=== PATIENT | male | born 1955 | race Caucasian/White ===

== ENCOUNTER 2021-06-04 18:17 | Emergency (ER) | payer MEDICARE, SELFPAY ==
[2021-06-04 18:23] VITALS: BP 177/123; PULSE 106; RESP 18; TEMP 36.6; O2SAT 96
[2021-06-04 19:11] LABS: Basophils Absolute Auto 0.1 K/mm3 (0.0-0.1); Basophils Percent Auto 0.8 % (0.2-1.2); Eosinophils Absolute Auto 0.2 K/mm3 (0-0.3); Eosinophils Percent Auto 1.6 % (0-4.4); Hematocrit 46.9 % (42.0-52.0); Hemoglobin 16.1 g/dL (14.0-18.0); Immature Granulocyte Absolute 0.05 K/mm3 (0.00-0.031); Immature Granulocyte Percent A 0.5 % (0-0.5); Lymphocytes Absolute Auto 1.74 K/mm3 (0.9-3.2); Lymphocytes Percent Auto 15.7 % (18.3-44.2); Mean Corpuscular HGB Conc 34.3 g/dl (32-36); Mean Corpuscular Hemoglobin 30.6 pg (26-34); Mean Corpuscular Volume 89.2 fl (80-100); Mean Platelet Volume 9.8 fl (7.4-10.4); Monocytes Absolute Auto 0.8 K/mm3 (0.1-0.6); Monocytes Percent Auto 7.6 % (2.6-8.5); Neutrophils Absolute Auto 8.2 K/mm3 (1.3-6.7); Neutrophils Percent Auto 73.8 % (45.5-73.1); Platelet Count Result 346 k/mm3 (150-375); Red Blood Count 5.26 M/mm3 (4.6-6.20); Red Cell Distribution Width 12.5 % (11.5-14.5); White Blood Count 11.1 K/mm3 (4.5-10.0)
[2021-06-04 19:20] LABS: Anion Gap 9 mmol/L (8-16); Blood Urea Nitrogen 16 mg/dL (9-20); Calcium 10.4 mg/dL (8.4-10.2); Carbon Dioxide 23 mmol/L (22-30); Chloride 106 mmol/L (98-107); Estimated CRCL calculation 62 ml/min; Estimated Glomerular Filt Rate > 60; Glucose 110 mg/dL (65-110); Potassium 4.1 mmol/L (3.4-5.0); Sodium 138 mmol/L (137-145)
--- NOTE | 2021-06-04 19:20 | ED.MALEGU ---
HPI - Male Genitourinary General Chief complaint: Urogenital-Male Stated complaint: unable to urinate Time Seen by Provider: 06/04/21 19:09 Source: patient Mode of arrival: ambulatory Limitations: no limitations History of Present Illness HPI Narrative: Patient is a 66-year-old male complaining of unable to urinate since this morning. Patient states that he has a history of urinary retention due to blood clots since he had prostate surgery and radiation treatment due to prostate cancer years ago, states that it would intermittently occur once or twice a year. Patient denies being on any oral anticoagulants or any antiplatelet drugs. Patient denies any pain. Patient sees Dr. Borja for his urologic issues. Related Data Allergies Allergy/AdvReac Type Severity Reaction Status Date / Time Quinolones Allergy Mild RASH Unverified 07/27/08 14:11 Review of Systems Review of Systems: All systems reviewed & are unremarkable except as noted in HPI and below Constitutional: Constitutional: Denies body ache(s), Denies chills, Denies excessive sweating, Denies fatigue, Denies fever(s), Denies headache(s), Denies lethargy, Denies malaise, Denies weakness and Denies weight loss Eyes: Eyes: Denies blurry vision, Denies change in vision and Denies loss of vision ENT: Denies dizziness, Denies ear discharge, Denies headache(s), Denies lip swelling, Denies epistaxis, Denies nasal congestion, Denies neck pain, Denies throat swelling and Denies tongue swelling Cardiovascular: Cardiovascular: Denies chest pain, Denies chest pain at rest, Denies chest pain with activity, Denies diaphoresis, Denies rapid heart rate, Denies edema, Denies irregular heart rhythm, Denies lightheadedness, Denies palpitations, Denies dyspnea and Denies dyspnea on exertion Respiratory: Respiratory: Denies chest congestion, Denies cough, Denies hemoptysis, Denies dyspnea and Denies dyspnea on exertion Gastrointestinal: Gastrointestinal: Denies abdominal pain, Denies melena, Denies hematochezia, Denies diarrhea, Denies nausea, Denies vomiting and Denies hematemesis Musculoskeletal: Musculoskeletal: Denies abnormal gait, Denies deformity, Denies joint swelling, Denies limited range of motion, Denies neck pain and Denies numbness Neurologic: Denies Abnormal speech present, Denies abnormal gait, Denies confusion, Denies dizziness, Denies headache(s), Denies focal weakness, Denies loss of vision, Denies numbness, Denies Other visual disturbances, Denies Sensory deficit (Neuro) and Denies weakness Psychiatric: Psychiatric: Denies confusion, Denies depression, Denies auditory hallucinations, Denies homicidal ideation and Denies suicidal ideation Endocrine: Endocrine: Denies cold intolerance, Denies excessive sweating, Denies fatigue, Denies heat intolerance and Denies palpitations Hematologic/Lymphatic: Hematologic/Lymphatic: Denies easy bleeding and Denies easy bruising Allergic/Immunologic: Allergic/Immunologic: Denies lip swelling, Denies throat swelling and Denies tongue swelling PMFSH Comments Past medical history: Prostate CA Family history: Hypertension Social history: Non-smoker no EtOH or drug use Exam Const: General: cooperative, healthy appearing, comfortable, no acute distress, well developed, alert and awake; No confusion Orientation/consciousness: oriented to person, oriented to place, oriented to time, patient oriented x3 and No confusion Limitations: no limitations HENMT: Head: normal to inspection, normocephalic and atraumatic Ears: hearing grossly normal bilaterally, TM normal on the right and TM normal on the left General nose exam: Normal external nose present, Normal nares present and No nasal discharge present Face and sinus: normal facial exam Mouth: Yes Normal oral and palatal mucosa present, Yes lip normal, Yes tongue normal and Yes oropharynx normal Throat: posterior oropharynx normal, tonsils normal and uvula midline Eyes: General: appearance normal, bot
[2021-06-04 19:31] LABS: Add Urine Microscopic? YES; Appearance Urine Cloudy (Clear); Bilirubin Urine Negative (Negative); Blood Urine 3+ (Negative); Color Urine Red (Yellow); Glucose Urine UA Negative (Negative); Ketones Urine Negative (Negative); Leukocyte Esterase Ur Negative LEU/UL (Negative); Mucus Urine Rare /lpf; Nitrate Urine Negative (Negative); Protein Urine 2+ mg/dL (Negative); RBC Urine >75 /hpf (0-2); Urobilinogen Urine Negative mg/dL (<2.0); WBC Urine 0-3 /hpf
[2021-06-04 20:24] VITALS: BP 138/104; PULSE 83; RESP 18; O2SAT 95
--- NOTE | 2021-06-04 20:30 | PC.NURSE ---
Catheter bag changed out to a leg bag. Patient instructed on use. Verbalized understanding.
== END 2021-06-04 20:30 | disposition home or self-care (01) ==
PROVIDERS: Emergency Medicine; Emergency Provider Emergency Medicine
DX: R33.9 Retention of urine, unspecified (principal); R31.0 Gross hematuria; Z85.46 Personal history of malignant neoplasm of prostate; Z92.3 Personal history of irradiation
CPT/HCPCS: 36415; 51703; 80048; 81001; 85025; 99283

== ENCOUNTER 2022-01-03 00:58 | Day surgery (SDC) | payer MEDICARE, SELFPAY ==
[2022-01-02 12:44] VITALS: BMI 29.7
--- NOTE | 2022-01-02 12:52 | PC.NURSE ---
Report to the Outpatient Waiting Room, entrance under the green pavilion located off [facility], at time 0815 on date 01/03/22. OR Time: 1015. Time changes happen often and if your time is changed the preop area will call you the afternoon before. - You and your visitor will be asked to self-screen and do not enter if you have any COVID symptoms. - Only one visitor and NO children visitors are allowed at this time. - The patient visitor is requested to leave or wait in car when not with patient due to restrictions. - A mask is required within the hospital. Patients may have clear liquids (water, carbonated beverages, clear teas, apple juice) until 3 hours prior to surgery with a maximum of 20 ounces. - No food from midnight until time of surgery Take the following medications with a SIP of water the morning of surgery: N/A Medications to discontinue per physician: N/A Date to take last dose: N/A Please no make-up, nail spanish, hairspray, perfume, deodorant, or body powder the day of surgery. No jewelry (including any body piercings) or valuables the day of surgery, leave them at home. Please take a shower or bath the night before, or the morning of, surgery with an antibacterial soap. Wear comfortable, loose fitting clothing. - Jewelry must be removed prior to entering the operating room. Rings and piercings that are not removed may be cut off. - The hospital will not accept responsibility for valuables. - Please leave all valuables, including medications, at home the day of surgery. If you are going home after surgery, a licensed driver education instructor must drive you home. - NO public transportation without another adult. - We recommend that an adult stay with you for 24 hours following discharge. - We also recommend that you do not drive, make important decision, drink alcoholic beverages, or take any drugs that were not prescribed by your health care provider for at least 24 hours after your discharge time. Follow any additional instructions given to you from your surgeon. If you or anyone in your household have experienced Covid symptoms in the past week, please notify your surgeon or the nurse liaison at the phone number below for possible testing. Telephone instructions given to PT - ARON BAÑUELOS and asked if any additional questions and then verbalized understanding. Patient advised to call surgeon office or pre surgery nurse liaison [phone] if any additional questions.
--- NOTE | ~2022-01-03 | XR_ITS ---
XR OR cystogram 01/03/2022 11:08 Indication: Intraoperative cystogram Procedure: 2 fluoroscopic images of the abdomen and pelvis. 42 seconds of fluoroscopy. Comparison: No prior studies for comparison. Findings: There are surgical changes in the pelvis bilaterally. Contrast is present in the bladder diego men which is smoothly marginated. No evidence for extravasation or reflux on this single image. Impression: 1: Unremarkable cystogram. Reviewed, dictated and finalized at location A. Impression: 1: Unremarkable cystogram.
--- NOTE | 2022-01-03 06:24 | ECG_ITS ---
Measurements Intervals [place] Rate: 66 P: 25 SC: 148 QRS: 1 QRSD: 88 T: -3 QT: 375 QTc: 394 Interpretive Statements SINUS RHYTHM EARLY PRECORDIAL R/S TRANSITION VOLTAGE CRITERIA FOR LVH BORDERLINE ST-T WAVE ABNORMALITY- INFERIOR LEADS BORDERLINE ECG NO PREVIOUS ECG AVAILABLE FOR COMPARISON Electronically Signed On 01-03-2022 10:20:00 CDT by Vic Moya D.O.
--- NOTE | 2022-01-03 06:44 | WPDHPUPDATE1 ---
History and Physical Update Update Date/Time: 01/03/22 06:44 History and Physical has been reviewed, including an updated exam of the patient. There are NO changes in the patient's condition. Risks, benefits, and alternatives have been discussed and questions answered. Patient agrees to proceed with procedure.
--- NOTE | 2022-01-03 09:10 | WPDANESEPPF ---
Anes - Initial Pre Proc Eval Procedure: Operation Date: 01/03/22 10:15 Proposed Procedures p Cystoscopy, Dilation Bladder Neck Contracture with Cystogram, Formalin Instillation - Kenny Robles MD Date/Time: 01/03/22 09:10 Surgeon: Kenny Robles MD Pre Op Diagnosis: Bladder Neck Contracture, Gross Hematuria Patient Data Age: 66 Gender: M Height: 1.7 m Weight: 86.18 kg Allergies Allergy/AdvReac Type Severity Reaction Status Date / Time Quinolones Allergy Mild RASH Unverified 01/02/22 12:43 Home Medications Medication Instructions Recorded Confirmed Type amlodipine 5 mg tablet 5 mg PO HS 01/02/22 01/02/22 History hydrochlorothiazide 12.5 mg capsule 12.5 mg PO HS 01/02/22 01/02/22 History losartan 100 mg tablet 100 mg PO HS 01/02/22 01/02/22 History Patient hx anesthesia problems: none Family hx anesthesia problems: none Results Review: All pre-operative results and documents have been reviewed as part of the pre-operative evaluation. [facility] Past Medical History Medical History (Updated 01/03/22 @ 09:11 by Luis Godfrey MD) HTN (hypertension) Overweight Prostate cancer Surgical History Surgical History (Updated 01/03/22 @ 09:14 by Luis Godfrey MD) H/O prostatectomy open- Social History Social History Smoking status: Never smoker Alcohol intake: never Substance use: never Substance use type: does not use Living arrangements: with family Spiritual care concerns: No Anes - Eval Final PreProcedure Day of Procedure 01/03/22 09:10 Patient weight: overweight Heart: regular rate and rhythm Lungs: clear to auscultation Airway: Mallampati scale class II Neurological: alert and oriented Last oral intake: >/= 8 hours ASA classification: III Emergent: no Anesthetic plan: proceed Anesthesia type and monitoring: general LMA and standard monitoring Results Review: All pre-operative results and documents have been reviewed as part of the pre-operative evaluation. Informed Consent: The patient's anesthetic plan and its attendant risks and benefits were discussed with the patient/family/POA. Questions were solicited and answers provided to the satisfaction of the patient/family/POA.
[2022-01-03] MEDS: LACTATED RINGERS 1,000 ML 30 ML IV CONT ×2 (09:15→12:45)
[2022-01-03 09:27] VITALS: BP 137/85; PULSE 73; RESP 14; TEMP 36.4; O2SAT 99
[2022-01-03 09:38] LABS: Anion Gap 12 mmol/L (8-16); Blood Urea Nitrogen 15 mg/dL (9-20); Calcium 10.1 mg/dL (8.4-10.2); Carbon Dioxide 25 mmol/L (22-30); Chloride 103 mmol/L (98-107); Estimated CRCL calculation 57 ml/min; Estimated Glomerular Filt Rate > 60; Glucose 103 mg/dL (65-110); Potassium 4.4 mmol/L (3.4-5.0); Sodium 140 mmol/L (137-145)
[2022-01-03] MEDS: ceFAZolin 2 GM/D5W 50 ML 2 GM/50 ML BAG IVPB (10:34)
[2022-01-03] MEDS: WATER FOR IRRIGATION, STERILE 1,000 ML BOTTLE 1000 ML IRRIGATION (10:57)
[2022-01-03 11:34] VITALS: BP 120/79; PULSE 64; RESP 16
--- NOTE | 2022-01-03 11:38 | P.OP_ITS ---
Procedure Note - Detailed Date of Procedure 01/03/22 Pre-op Diagnosis Bladder Neck Contracture, Gross Hematuria, Radiation Cystitis Post-op Diagnosis Same Procedure Performed Cystoscopy, urethral dilatation, clot evacuation, cystogram and 1% formalin installation Surgeon Kenny Robles MD Description of Procedure Patient is brought the op suite prepped draped in routine sterile fashion while in dorsal lithotomy position. 2% xylocaine jelly was introduced intraurethrally and systemic sedation is administered per the anesthesia department. I 1st dilated the bladder neck contracture from 18 F to 24 F using Bety sounds. Then placed a 21 F rigid cystoscope in his bladder. Moderate amount of dependent clot was evacuated with a Sera syringe. Bladder mucosa shows diffuse circumferential petechial like hemorrhages in areas of hyperemia that her patchy in nature. This a is consistent with radiation cystitis. I perfor med a cystogram by filling the bladder with 400 cc of contrast. There is no evidence of vesicoureteral reflux. I emptied the bladder and then filled it with 1% formalin. We placed a total of 300 cc in the bladder and allowed to stand for 20 minutes. The bladder was drained the bladder was copiously irrigated with saline. Patient tolerated this procedure well was taken recovery room in good condition. Drains No Packing No Pathology None sent Condition Stable
[2022-01-03 11:50] VITALS: BP 114/79; PULSE 61; RESP 16
[2022-01-03 12:15] VITALS: BP 137/93; PULSE 61; RESP 16
[2022-01-03 12:45] VITALS: BP 133/90; PULSE 59; RESP 16
--- NOTE | 2022-01-03 13:07 | SUR.PHASEII ---
1245 pt bladder scanned and results were less then 39ml. we have a call out to dr valenzuela and marcelino
[2022-01-03 13:15] VITALS: BP 147/90; PULSE 63; RESP 16
--- NOTE | 2022-01-03 13:45 | SUR.PHASEII ---
1330 dr valenzuela in op recovery, told him about bladder scan results, pt no need to void, straight caths at home.
== END 2022-01-03 13:45 | disposition home or self-care (01) ==
PROVIDERS: Anesthesiology; Visit Provider Urology
PROC: 3E1K78Z Irrigation of Genitourinary Tract using Irrigating Substance, Via Natural or Artificial Opening (ICD-10-PCS; CPT 51700; principal; 2022-01-03 10:15)
DX: N32.0 Bladder-neck obstruction (principal); N30.41 Irradiation cystitis with hematuria; I10 Essential (primary) hypertension; Z85.46 Personal history of malignant neoplasm of prostate
CPT/HCPCS: 52001; 36415; 74430; 80048; 93005; J0690; J1100; J2250; J2405; J2704; J3010; J7120